=== PATIENT | male | born 1970 | race Caucasian/White ===

== ENCOUNTER 2024-03-11 17:54 | Emergency (ER) | payer BC ==
[~2024-03-11] VITALS: Ht 180.3 cm; Wt 118.2 kg
[2024-03-11] MEDS: ketorolac trometh 15mg/ml vial 15 MG/ML ML IM ONE (18:41)
[2024-03-11] MEDS: HYDROcodone/acetaminophen 10/325mg tab PO ONE (18:41)
[2024-03-11] MEDS ORDERED: HYDR-3972 PO (20:35)
[2024-03-11] MEDS ORDERED: METH-798 PO (20:35)
[2024-03-11 20:47] VITALS: BP 150/86; PULSE 75; RESP 14; TEMP 98.4; O2SAT 93
== END 2024-03-11 20:49 | disposition home or self-care (01) ==
LOC: ER 17:55
DX: M54.50 Low back pain, unspecified (principal)
CPT/HCPCS: 72100; 96372; 99283; J1885

== ENCOUNTER 2024-03-15 12:32 | Emergency (ER) | payer BC ==
[~2024-03-15] VITALS: Ht 180.3 cm; Wt 118.0 kg
[~2024-03-15 12:32] MED LIST: HYDR-3972 PO; METH-798 PO
[2024-03-15] MEDS: dexamethasone sod phosphate 10mg/ml inj IV ONE (15:49)
[2024-03-15] MEDS: ondansetron/PF 4mg/2ml inj IV ONE (15:49)
[2024-03-15] MEDS: HYDROmorphone 1 mg/ml syringe IV ONE (15:50)
[2024-03-15] MEDS ORDERED: ketorolac trometh 15mg/ml vial 15 MG/ML ML IV ONE (16:25)
[2024-03-15] MEDS: ketorolac trometh 30MG/ML vial 30 MG/ML VIAL IV ONE (16:48)
[2024-03-15] MEDS ORDERED: PRED20TA PO (17:37)
[2024-03-15] MEDS ORDERED: OXYC-150 PO (17:37)
[2024-03-15 17:47] VITALS: BP 175/84; PULSE 100; RESP 18; TEMP 99; O2SAT 99
== END 2024-03-15 17:45 | disposition home or self-care (01) ==
LOC: ER 12:32
DX: M54.17 Radiculopathy, lumbosacral region (principal); M54.50 Low back pain, unspecified; Z79.899 Other long term (current) drug therapy
CPT/HCPCS: 96374; 96375; 99284; J1100; J1171; J1885; J2405